=== PATIENT | female | born 1985 | race Caucasian/White ===

== ENCOUNTER → 2020-05-08 | Outpatient (CLI) | payer BC ==
[~2020-05-08] MED LIST: ATIVAN 1MG T1 MG/TAB PO; DILANTIN 100MG100 MG PO; KEPPRA750 MG PO; MOTRIN 600600 MG/TAB PO; NORCO 325 MG-51 TAB PO; OMNICEF 300MG300 MG PO; PERCOCET 325 MG1 TA2 PO; PHENYTEK200 MG PO; PRENATAL1 TA1 PO; WELLBUTRIN XL150 MG PO; ZOFRAN 4MG T4 MG/TAB PO; ZOFRAN ODT4 MG PO; ZOLOFT50 MG PO
== END ==
LOC: BHSO 14:45
DX: F41.1 Generalized anxiety disorder (principal)
CPT/HCPCS: G0463

== ENCOUNTER → 2020-07-12 | Outpatient (CLI) | payer BC | LOC: BHSO 09:01 | DX: F33.41 Major depressive disorder, recurrent, in partial remission (principal) | CPT/HCPCS: G0463 ==

== ENCOUNTER → 2020-09-20 | Outpatient (CLI) | payer BC | LOC: BHSO 09:57 | DX: F33.42 Major depressive disorder, recurrent, in full remission (principal) | CPT/HCPCS: G0463 ==

== ENCOUNTER 2020-11-21 06:29 | Day surgery (SDC) | payer BC ==
[~2020-11-21] VITALS: Ht 172.7 cm; Wt 80.5 kg
[2020-11-21 07:43] VITALS: BP 115/68; PULSE 78; TEMP 98.7
[2020-11-21] MEDS ORDERED: VIIBRYD40 MG PO (07:49)
[2020-11-21] MEDS ORDERED: PRILOSEC 20MG20 MG PO (07:50)
[2020-11-21] MEDS ORDERED: MOTRIN 200200 MG/TAB PO (07:51)
[2020-11-21] MEDS ORDERED: IMITREX 25MG TA25 MG PO (07:51)
[2020-11-21] MEDS ORDERED: AJOVY225 MG/1.5 SQ (07:51)
[2020-11-21 08:35] VITALS: BP 109/70; PULSE 75; TEMP 98.5
--- NOTE | 2020-11-21 08:35 | NUR ---
Pt to GI [facility] 3 via cart from ENDO. Pt awake and alert. Pt ambulates to recliner with stand by assist x2. VSS. IV site to right hand is infusing without difficulties. Coffee and jello given per pt request. Will continue to monitor. Call light within reach.
[2020-11-21 08:50] VITALS: BP 103/76; PULSE 71
--- NOTE | 2020-11-21 08:50 | NUR ---
Pt tolerating food and fluids without diffiuclties. Pt denies pain. Will continue to monitor. Call light within reach.
[2020-11-21 09:05] VITALS: BP 108/80; PULSE 72
--- NOTE | 2020-11-21 09:05 | NUR ---
Pt continues to rest. Denies needs. Call light withn reach.
--- NOTE | 2020-11-21 09:10 | NUR ---
Discharge instructions reviewed. Pt voices understanding. IV site discontinued with all parts intact. Pt up to dress. Call light within reach.
--- NOTE | 2020-11-21 09:20 | NUR ---
Pt escorted to private car via wheel chair. Pt accompanied home by her .
== END 2020-11-21 09:20 | disposition home or self-care (01) ==
LOC: SDCO 06:29
DX: K29.50 Unspecified chronic gastritis without bleeding (principal); K21.9 Gastro-esophageal reflux disease without esophagitis; F32.9 Major depressive disorder, single episode, unspecified; F41.9 Anxiety disorder, unspecified; G43.909 Migraine, unspecified, not intractable, without status migrainosus
CPT/HCPCS: J2704; J7030

== ENCOUNTER → 2023-12-18 | Outpatient (CLI) | payer BC ==
[~2023-12-18] MED LIST changes: +AJOVY225 MG/1.5 SQ; +CYMBALTA 30MG30 MG PO; +D3-5050000 IU PO; +IMITREX 25MG TA25 MG PO; +MOTRIN 200200 MG/TAB PO; +PRILOSEC 20MG20 MG PO; +PROTONIX 40MG T40 MG PO; +TOPAMAX 100MG100 M1 PO; +VIIBRYD40 MG PO; +WEGOVY2.4 MG/0.7 SQ
== END ==
LOC: MC.RAD 10:57
DX: Z12.31 Encounter for screening mammogram for malignant neoplasm of breast (principal); Z98.82 Breast implant status